=== PATIENT | female | born 1995 ===

== ENCOUNTER 2017-03-08 11:48 | Emergency (ER) | payer MEDICAID ==
--- NOTE | 2017-03-08 12:08 | EDM.PDOC ---
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 Past medical history: As per history of present illness and as reviewed below otherwise noncontributory. Surgical history: As per history of present illness and as reviewed below otherwise noncontributory. Social history: No reported history of drug or alcohol abuse. Family history: As per history of present illness and as reviewed below otherwise noncontributory. Physical exam: Alert and oriented female she does have 2 children in with her. Answers questions appropriately. No shortness of breath noted. she is nontoxic in appearance. HEENT: Atraumatic, normocehpalic, pupils reactive, negative for conjunctival pallor or scleral icterus, mucous membranes moist, throat clear, neck supple, nontender, trachea midline. Lungs: Clear to auscultation, breath sounds equal bilaterally, chest non tender. Heart: S1S2, regular, negative for clicks, rubs, or JVD. Abdomen: Soft, nondistended, nontender. Negative for masses or hepatossplenmegaly. Negative for costovertebral tenderness. Pelvis: Stable nontender. Genitourinary: Deferred. Rectal: Deferred Extremities: Atraumatic, negative for cords or calf pain. Neurovascular unremarkable. Neuro: Awake, alert, oriented. Cranial nerves II through XII unremarkable. Cerebellum unremarkable. Motor and sensory unremarkable throughout. Exam nonfocal. Discussed with patient that the ultrasound shows no cardiac heartbeat. And unfortunately this likely means demise of her baby. She is visibly distressed. And denies that there is anyone that she is able to call at this time. No one else was aware of her . Pastoral services was offered by nursing staff and she refused. Diagnostics: [ua US] Therapeutics: [] Impression: [ demise pending AB] Plan: []Discharged to home Follow up with Radha Jaimes as discussed Definitive disposition and diagnosis as appropriate pending reevaluation and review of above. 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 ED EXAM - Physical Exam Exam: See Below (See dictation) Course - Vital Signs Last Recorded V/S: Last Vital Signs Temp 36.2 C 03/08/17 11:48 Pulse 117 H 03/08/17 11:48 Resp 18 03/08/17 11:48 BP 112/74 03/08/17 11:48 Pulse Ox 96 03/08/17 11:48 - Orders/Labs/Meds Orders: Active Orders 24 hr Category Date Time Status OB 1st Tri Sgl 1st Gest [US] Stat Exams 03/08/17 12:08 Taken CULTURE URINE [RM] Stat Lab 03/08/17 13:06 Received UA W/MICROSCOPIC [URIN] Stat Lab 03/08/17 13:06 Received Departure - Departure Time of Disposition: 13:17 Disposition: Home, Self-Care 01 Condition: Good Clinical Impression: Incomplete - Discharge Information Referrals: PCP,None [Primary Care Provider] - Forms: ED Department Discharge Additional Instructions: The following information is given to patients seen in the emergency department who are being discharged to home. This information is to outline your options for follow-up care. We provide all patients seen in our emergency department with a follow-up referral. The need for follow-up, as well as the timing and circumstances, are variable depending upon the specifics of your emergency department visit. If you don't have a primary care physician on staff, we will provide you with a referral. We always advise you to contact your personal physician following an emergency department visit to inform them of the circumstance of the visit and for follow-up with them and/or the need for any referrals to a consulting specialist. The emergency department will also refer you to a specialist when appropriate. This referral assures that you have the opportunity for followup care with a specialist. All of these measure are taken in an effort to provide you with optimal care, which includes your followup. Under all circumstances we always encourage you to contact your private physician who remains a resource for coordinating your care. When calling for followup care, please make the office aware that this follow-up is from your recent emergency room visit. If for any reason you are refused follow-up, please contact the [facility] emergency department at and asked to speak to the emergency department charge nurse. Follow-up with Dr. Radha Jaimes as discussed. Call her for an appointment tomorrow. - My Orders Last 24 Hours: My Active Orders 03/08/17 12:08 OB 1st Tri Sgl 1st Gest [US] Stat 03/08/17 13:06 CULTURE URINE [RM] Stat UA W/MICROSCOPIC [URIN] Stat - Assessment/Plan Last 24 Hours: My Active Orders 03/08/17 12:08 OB 1st Tri Sgl 1st Gest [US] Stat 03/08/17 13:06 CULTURE URINE [RM] Stat UA W/MICROSCOPIC [URIN] Stat
[2017-03-08 14:08] VITALS: BP 119/55
--- NOTE | 2017-03-09 14:38 | US ---
EXAM DATE: 03/08/17 PATIENT'S AGE: 21 Patient: MT FLOYD Facility: [place], [place] Site . Site : 1995 Study: US OB Pelvis [id number] 12:41:50 PM Ordering Physician: Doctor Christiansen Final Report: INDICATION: Pelvic pain and bleeding. TECHNIQUE: Transvaginal scanning was performed to optimally evaluate the IUP and adnexa. Ovarian blood flow was evaluated with color-flow and pulsed Doppler. COMPARISON: None. FINDINGS: An intrauterine is demonstrated with a pole but no appreciable cardiac activity. Gestational age is estimated at 7 weeks by LMP of 6 weeks 1 day by today`s crown-rump length. The placenta is not yet formed. No subchorionic hemorrhage is evident. The ovaries are normal is size and shape. The right ovary measures 1.6 x 1.3 x 1.2 cm and the left 2.4 x 1.9 x 1.8 cm. Ovarian blood flow is demonstrated with color-flow and pulsed Doppler. No adnexal mass or free fluid is apparent. IMPRESSION: : Intrauterine gestational sac with pole but no appreciable cardiac activity. Embryonic demise suspected. Correlate with serial serum HCG levels. Dictated by El Walton MD @ Mar 08 2017 12:46PM (Electronic Signature) Report Signed by Proxy. RICARDO
== END 2017-03-08 14:15 | disposition home or self-care (01) ==
LOC: MW.ED 11:48
DX: O03.4 Incomplete spontaneous abortion without complication (principal)
CPT/HCPCS: 36415; 76801; 76801-26; 81001; 84702; 87086; 99282; 99284-25

== ENCOUNTER 2019-12-13 15:21 | Observation (INO) | payer MEDICAID, OTHER ==
[2019-12-13] MEDS ORDERED: Lidocaine 1% 50 ML MDV INJECT PRN (16:44)
[2019-12-13] MEDS ORDERED: Sodium Chloride 0.9% 10 ML SDV IV PRN (16:44)
[2019-12-13] MEDS ORDERED: Tranexamic Acid 1,000 MG in Sodium Chloride 0.9% 100 ML IV PRN (16:44)
[2019-12-13] MEDS ORDERED: Carboprost Tromethamine 250 MCG/1 ML Amp IM PRN (16:44)
[2019-12-13] MEDS ORDERED: Ondansetron 4 MG/2 ML SDV IVPUSH PRN (16:44)
[2019-12-13] MEDS ORDERED: Sodium Chloride 0.9% 2.5 ML Syringe FLUSH PRN (16:44)
[2019-12-13] MEDS ORDERED: Misoprostol 200 MCG Tab PO PRN (16:44)
[2019-12-13] MEDS ORDERED: Water For Irrigation,Sterile 1,000 ML Container IRR PRN (16:44)
[2019-12-13] MEDS ORDERED: Methylergonovine 0.2 MG/1 ML Amp IM PRN (16:44)
[2019-12-13] MEDS ORDERED: Sodium Chloride 0.9% 10 ML Syringe FLUSH PRN (16:44)
[2019-12-13] MEDS ORDERED: Oxytocin/0.9 % Sodium Chloride 30 UNIT/500 ML BAG IV SCH (16:45)
[2019-12-13] MEDS: Sodium Chloride 0.9% 1,000 ML IV SCH ×3 (17:37→23:18)
[2019-12-13] MEDS ORDERED: Betamethasone Acetate/Betamethasone Sod Phosphate 30 MG/5 ML MDV IM SCH (18:00)
[2019-12-13 18:04] LABS: BLOOD UREA NITROGEN,BUN 12 mg/dL (7.0-18.0); CARBON DIOXIDE,CO2 20.9 mmol/L (21.0-32.0); CHLORIDE,CL 104 mmol/L (98-107); GLUCOSE RANDOM 134 mg/dL (74-106); POTASSIUM,K 3.4 mmol/L (3.5-5.1); SODIUM,NA 138 mmol/L (136-145)
[2019-12-13] MEDS ORDERED: Insulin Glargine,Human Rec. Analog 100 Units/ML 3 ML Pen ONE (19:34)
[2019-12-13] MEDS ORDERED: Insulin Aspart 100 Units/ML 3 ML Pen ONE (19:34)
[2019-12-13] MEDS ORDERED: hydrOXYzine HCl 25 MG Tab PO PRN (19:35)
[2019-12-13] MEDS: Insulin Aspart 100 Units/ML 3 ML Pen SUBCUT SCH (19:49)
[2019-12-13] MEDS ORDERED: Insulin Aspart 100 Units/ML 3 ML Pen SUBCUT SCH (22:00)
[2019-12-13] MEDS ORDERED: Insulin Glargine,Human Rec. Analog 100 Units/ML 3 ML Pen SUBCUT SCH (22:00)
[2019-12-13] MEDS: Ursodiol 300 MG Cap PO SCH (23:16)
[2019-12-13 23:24] VITALS: BP 101/50; PULSE 89
[2019-12-14] MEDS: Ursodiol 300 MG Cap PO SCH ×2 (07:46→15:40)
[2019-12-14] MEDS: Sodium Chloride 0.9% 1,000 ML IV SCH ×2 (07:55→15:38)
[2019-12-14] MEDS: Insulin Aspart 100 Units/ML 3 ML Pen SUBCUT SCH (09:17)
[2019-12-14] MEDS ORDERED: Insulin Glargine,Human Rec. Analog 100 Units/ML 3 ML Pen SUBCUT SCH (10:00)
[2019-12-14] MEDS ORDERED: Ursodiol 300 MG Cap PO SCH (10:30)
[2019-12-14] MEDS ORDERED: Prenatal Multivitamin and Multimineral with Iron Tab PO SCH (10:30)
[2019-12-14] MEDS ORDERED: Betamethasone Acetate/Betamethasone Sod Phosphate 30 MG/5 ML MDV IM SCH (18:00)
--- NOTE | 2019-12-14 18:01 | US ---
Biophysical profile: Multiple real-time images were obtained transabdominally. presentation: Cephalic Placenta: Anterior with no findings of placenta previa Amniotic fluid: TREVA 7.3 cm Heart rate: 136 BPM Biophysical profile: breathing 2, movement 2, tone 2, amniotic fluid volume 2 Impression: 1. Single intrauterine fetus currently cephalic in presentation. 2. 8 out of 8 on biophysical profile. Diagnostic code #1 This report was dictated in MDT
== END 2019-12-14 18:39 | disposition home or self-care (01) ==
LOC: MW.OB 15:21
PROVIDERS: ADMIT Obstetrics & Gynecology; ATTEND Obstetrics & Gynecology
DX: O41.03X0 Oligohydramnios, third trimester, not applicable or unspecified (principal); O24.419 Gestational diabetes mellitus in pregnancy, unspecified control; O26.613 Liver and biliary tract disorders in pregnancy, third trimester; K83.1 Obstruction of bile duct; Z20.828 Contact with and (suspected) exposure to other viral communicable diseases; Z3A.36 36 weeks gestation of pregnancy
CPT/HCPCS: 36415; 59025; 76819; 80053; 82239; 82962; 85027; 86592; 86593; 87635; 96360; 96361; 96372; A9270; G0378; J0702; J1815; J7030; U0002

== ENCOUNTER 2019-12-16 17:59 | Inpatient (IN) | payer MEDICAID ==
[2019-12-16] MEDS ORDERED: Nalbuphine 10 MG/1 ML Vial IVPUSH PRN (18:25)
[2019-12-16] MEDS ORDERED: Carboprost Tromethamine 250 MCG/1 ML Amp IM PRN (18:25)
[2019-12-16] MEDS ORDERED: Sodium Chloride 0.9% 10 ML SDV IV PRN (18:25)
[2019-12-16] MEDS ORDERED: Water For Irrigation,Sterile 1,000 ML Container IRR PRN (18:25)
[2019-12-16] MEDS ORDERED: Sodium Chloride 0.9% 2.5 ML Syringe FLUSH PRN (18:25)
[2019-12-16] MEDS ORDERED: Sodium Chloride 0.9% 10 ML Syringe FLUSH PRN (18:25)
[2019-12-16] MEDS ORDERED: Lidocaine 1% 50 ML MDV INJECT PRN (18:25)
[2019-12-16] MEDS ORDERED: Tranexamic Acid 1,000 MG in Sodium Chloride 0.9% 100 ML IV PRN (18:25)
[2019-12-16] MEDS ORDERED: Methylergonovine 0.2 MG/1 ML Amp IM PRN (18:25)
[2019-12-16] MEDS ORDERED: Misoprostol 200 MCG Tab PO PRN (18:25)
[2019-12-16] MEDS ORDERED: Terbutaline 1 MG/ML SDV SUBCUT PRN (18:25)
[2019-12-16] MEDS ORDERED: Oxytocin/0.9 % Sodium Chloride 30 UNIT/500 ML BAG IV SCH ×2 (18:30)
[2019-12-16] MEDS ORDERED: Dextrose 5%-0.9% NaCl 1,000 ML IV PRN (18:57)
[2019-12-16] MEDS: Sodium Chloride 0.9% 1,000 ML IV SCH ×2 (19:28→22:52)
[2019-12-17] MEDS: Sodium Chloride 0.9% 1,000 ML IV SCH (04:35)
[2019-12-17] MEDS ORDERED: Ondansetron 4 MG/2 ML SDV IVPUSH PRN (06:56)
[2019-12-17] MEDS: Butorphanol 1 MG/ML SDV IVPUSH PRN ×2 (07:41→08:59)
[2019-12-17] MEDS ORDERED: Bisacodyl 10 MG Supp RECTAL PRN (10:07)
[2019-12-17] MEDS ORDERED: Benzocaine/Menthol 20%-0.5% Spray 78 GM Cannister TOP PRN (10:07)
[2019-12-17] MEDS ORDERED: Witch Hazel Medicated Pads 40/Jar TOP PRN (10:07)
[2019-12-17] MEDS ORDERED: Acetaminophen 500 MG Tab PO PRN (10:07)
[2019-12-17] MEDS ORDERED: Lanolin 100% Cream 7 GM Tube TOP PRN (10:07)
[2019-12-17] MEDS ORDERED: Docusate Sodium 100 MG Cap PO PRN (10:07)
[2019-12-17] MEDS ORDERED: Ibuprofen 400 MG Tab PO PRN (10:07)
[2019-12-17] MEDS ORDERED: Methylergonovine 0.2 MG/1 ML Amp IM PRN (10:07)
[2019-12-17] MEDS ORDERED: Ibuprofen 800 MG Tab PO PRN (10:07)
--- NOTE | 2019-12-17 10:09 | PCM.DEL ---
<Melania Reilly - Last Filed: 12/18/19 07:13> L & D Note - General Info Date of Service: 12/17/19 - Delivery Note Labor: Spontaneous, Augmented by Oxytocin, Induced by ARM Delivery Outcome: Livebirth Infant Delivery Method: Spontaneous Vaginal Delivery-Single Anesthesia Type: None Episiotomy Type: None Laceration: None Placenta: Intact, Spontaneous - Patient Data Vitals - Most Recent: Last Vital Signs Temp 36.9 C 12/18/19 04:50 Pulse 95 12/18/19 04:50 Resp 16 12/18/19 04:50 BP 126/71 12/17/19 20:00 Pulse Ox 95 12/18/19 04:50 Lab Results Last 24 Hours: Laboratory Results - last 24 hr 12/17/19 12/17/19 12/18/19 Range/Units 07:30 09:46 06:10 Hgb 11.0 L (12.0-16.0) g/dL Hct 33.9 L (36.0-46.0) % Cord ABG pH 7.277 (7.18-7.38) Cord ABG Base Excess -5 (-10--2) Cord VBG pH 7.358 (7.25-7.45) Cord VBG Base Excess -5 (-10--2) Sodium (136-145) mmol/L Potassium (3.5-5.1) mmol/L Chloride (98-107) mmol/L Carbon Dioxide (21.0-32.0) mmol/L BUN (7.0-18.0) mg/dL Creatinine (0.6-1.0) mg/dL Est Cr Clr Drug Dosing mL/min Estimated GFR (MDRD) ml/min Glucose (74-106) mg/dL POC Glucose 71 (60-110) mg/dL Calcium (8.5-10.1) mg/dL 12/18/19 Range/Units 06:10 Hgb (12.0-16.0) g/dL Hct (36.0-46.0) % Cord ABG pH (7.18-7.38) Cord ABG Base Excess (-10--2) Cord VBG pH (7.25-7.45) Cord VBG Base Excess (-10--2) Sodium 139 (136-145) mmol/L Potassium 3.8 (3.5-5.1) mmol/L Chloride 106 (98-107) mmol/L Carbon Dioxide 25.3 (21.0-32.0) mmol/L BUN 9 (7.0-18.0) mg/dL Creatinine 0.6 (0.6-1.0) mg/dL Est Cr Clr Drug Dosing 131.22 mL/min Estimated GFR (MDRD) > 60.0 ml/min Glucose 110 H (74-106) mg/dL POC Glucose (60-110) mg/dL Calcium 8.3 L (8.5-10.1) mg/dL Med Orders - Current: Current Medications Acetaminophen (Tylenol Extra Strength) 500 mg PO Q4H PRN PRN Reason: Pain Acetaminophen (Tylenol Extra Strength) 1,000 mg PO Q4H PRN PRN Reason: Pain Last Admin: 12/18/19 01:13 Dose: 1,000 mg Documented by: Benzocaine/Menthol (Dermoplast Pain Relief 20%-0.5% Warren) 78 gm TOP ASDIRECTED PRN PRN Reason: Perineal Comfort Measure Bisacodyl (Dulcolax) 10 mg RECTAL ONETIME PRN PRN Reason: Constipation Docusate Sodium (Colace) 100 mg PO BID PRN PRN Reason: Constipation Emollient Ointment (Lansinoh Hpa) 0 gm TOP ASDIRECTED PRN PRN Reason: Sore Nipples Ibuprofen (Motrin) 400 mg PO Q4H PRN PRN Reason: Pain Ibuprofen (Motrin) 800 mg PO Q6H PRN PRN Reason: Pain Methylergonovine Maleate (Methergine) 0.2 mg IM ONETIME PRN PRN Reason: Excessive Vaginal Bleeding Nadolol [Corgard] 20 (Mg)) 1 each PO DAILY [facility] Last Admin: 12/17/19 16:02 Dose: Not Given Documented by: #103/Iron Fumarate/Fa [ ] 1 each PO DAILY [facility] Meeta Deutsch (Rory) 1 pad TOP ASDIRECTED PRN PRN Reason: comfort care Discontinued Medications Butorphanol Tartrate (Stadol) 1 mg IVPUSH Q1H PRN PRN Reason: Pain Last Admin: 12/17/19 08:59 Dose: 1 mg Documented by: Carboprost Tromethamine (Hemabate Ds) 250 mcg IM ASDIRECTED PRN PRN Reason: Post Hemorrhage Oxytocin/Sodium Chloride (Oxytocin 30 Unit/500 Ml-Ns) 30 unit in 500 mls @ 500 mls/hr IV TITRATE EDIE Tranexamic Acid 1,000 mg/ (Sodium Chloride) 110 mls @ 660 mls/hr IV ONETIME PRN PRN Reason: Bleeding Oxytocin/Sodium Chloride (Oxytocin 30 Unit/500 Ml-Ns) 30 unit in 500 mls @ 2 mls/hr IV TITRATE EDIE; Protocol Last Titration: 12/17/19 05:31 Dose: 10 munits/min, 10 mls/hr Documented by: Sodium Chloride (Normal Saline) 1,000 mls @ 150 mls/hr IV ASDIRECTED EDIE Last Infusion: 12/17/19 09:18 Dose: 999 mls/hr Documented by: Insulin Human Regular 100 unit (/ Sodium Chloride) 100 mls @ 1 mls/hr IV TITRATE EDIE; Protocol Dextrose/Sodium Chloride (Dextrose 5%-Normal Saline) 1,000 mls @ 100 mls/hr IV ASDIRECTED PRN PRN Reason: Blood Glucose Lidocaine HCl (Xylocaine 1%) 50 ml INJECT ONETIME PRN PRN Reason: Laceration repair Methylergonovine Maleate (Methergine) 0.2 mg IM ASDIRECTED PRN PRN Reason: Post Hemorrhage Misoprostol (Cytotec) 200 mcg PO ONETIME PRN PRN Reason: Post Hemorrhage Nalbuphine HCl (Nubain) 10 mg IVPUSH Q1H PRN PRN Reason: Pain (severe 7-10) Ondansetron HCl (Zofran) 4 mg IVPUSH Q6H PRN PRN Reason: Nausea/Vomiting Last Admin: 12/17/19 07:46 Dose: 4 mg Documented by: Sodium Chloride (Saline Flush) 10 ml FLUSH ASDIRECTED PRN PRN Reason: Keep Vein Open Sodium Chloride (Saline Flush) 2.5 ml FLUSH ASDIRECTED PRN PRN Reason: Keep Vein Open Sodium Chloride (Normal Saline) 10 ml IV ASDIRECTED PRN PRN Reason: IV Use Sterile Water (Sterile Water For Irrigation) 1,000 ml IRR ASDIRECTED PRN PRN Reason: delivery Terbutaline Sulfate (Brethine) 0.25 mg SUBCUT ASDIRECTED PRN PRN Reason: Tacysystole - Problem List & Annotations (1) Vaginal delivery SNOMED Code(s): 825458023 Code(s): O80 - ENCOUNTER FOR FULL-TERM UNCOMPLICATED DELIVERY Status: Acute - Problem List Review Problem List Initiated/Reviewed/Updated: Yes - My Orders Last 24 Hours: My Active Orders 12/17/19 10:07 Patient Status [ADT] Routine May Shower [RC] ASDIRECTED Up ad Rose Marie [RC] ASDIRECTED Vital Signs [RC] PER UNIT ROUTINE Acetaminophen [Tylenol Extra Strength] 1,000 mg PO Q4H PRN Acetaminophen [Tylenol Extra Strength] 500 mg PO Q4H PRN Benzocaine/Menthol [Dermoplast Pain Relief 20%-0.5% Warren] 78 gm TOP ASDIRECTED PRN Docusate Sodium [Colace] 100 mg PO BID PRN Ibuprofen [Motrin] 400 mg PO Q4H PRN Ibuprofen [Motrin] 800 mg PO Q6H PRN Lanolin [Lansinoh HPA] See Dose Instructions TOP ASDIRECTED PRN Methylergonovine [Methergine] 0.2 mg IM ONETIME PRN bisacodyL [Dulcolax] 10 mg RECTAL ONETIME PRN witch Arely [Tucks] 1 pad TOP ASDIRECTED PRN Assess Lochia [WOMSER] Per Unit Routine Assess Uterine Involution [WOMSER] Per Unit Routine Peripheral IV Discontinue [OM.PC] Routine Resuscitation Status Routine 12/17/19 10:08 Perineal Care [OM.PC] Per Unit Routine 12/17/19 10:15 Patient's Own Medication [Ptom] 1 each PO DAILY 12/17/19 Lunch Regular Diet [DIET] 12/18/19 09:00 Patient's Own Medication [Ptom] 1 each PO DAILY <Toribio Diaz - Last Filed: 12/20/19 14:54> L & D Note - General Info Date of Service: 12/17/19 - Delivery Note Labor: Spontaneous, Augmented by Oxytocin, Induced by ARM Delivery Outcome: Livebirth Delivery Method: Spontaneous Vaginal Delivery-Single Infant Delivery Mode: Spontaneous Presentation: Left Occiput Anterior (DEEDEE) Nuchal Cord: None Anesthesia Type: None Amniotic Fluid Description: Meconium Stained Laceration: None Placenta: Intact, Spontaneous Cord: 3 Vessels Estimated Blood Loss: 100 Resuscitation Needed: No : Suctioned, Bulb Syringe, Stimulated, Warmed Score 1 min: 7 Score 5 min: 9 Delivery Comments (Free Text/Narrative):: Liveborn female weight ####g, apgars 7 and 9 - General Info Date of Service: 12/17/19 - Patient Data Weight - Most Recent: 188 lb I&O - Last 24 Hours: Intake & Output 12/16/19 12/17/19 12/17/19 22:59 06:59 14:59 Intake Total 1000 1000 Balance 1000 1000 Lab Results Last 24 Hours: Laboratory Results - last 24 hr 12/16/19 12/16/19 12/16/19 Range/Units 18:15 18:36 18:36 WBC 13.56 H (4.0-11.0) K/uL RBC 3.89 L (4.30-5.90) M/uL Hgb 11.2 L (12.0-16.0) g/dL Hct 34.9 L (36.0-46.0) % MCV 89.7 (80.0-98.0) fL MCH 28.8 (27.0-32.0) pg MCHC 32.1 (31.0-37.0) g/dL RDW Std Deviation 45.7 (28.0-62.0) fl RDW Coeff of Popeye 14 (11.0-15.0) % Plt Count 200 (150-400) K/uL MPV 11.40 (7.40-12.00) fL Nucleated RBC % 0.0 /100WBC Nucleated RBCs # 0 K/uL POC Glucose (60-110) mg/dL COVID-19 (SHRUTHI) NEGATIVE (NEGATIVE) Blood Type A POSITIVE Antibody Screen NEGATIVE 12/16/19 12/16/19 12/17/19 Range/Units 19:44 21:51 00:26 WBC (4.0-11.0) K/uL RBC (4.30-5.90) M/uL Hgb (12.0-16.0) g/dL Hct (36.0-46.0) % MCV (80.0-98.0) fL MCH (27.0-32.0) pg MCHC (31.0-37.0) g/dL RDW Std Deviation (28.0-62.0) fl RDW Coeff of Popeye (11.0-15.0) % Plt Count (150-400) K/uL MPV (7.40-12.00) fL Nucleated RBC % /100WBC Nucleated RBCs # K/uL POC Glucose 81 101 72 (60-110) mg/dL COVID-19 (SHRUTHI) (NEGATIVE) Blood Type Antibody Screen 12/17/19 12/17/19 12/17/19 Range/Units 01:02 03:01 05:05 WBC (4.0-11.0) K/uL RBC (4.30-5.90) M/uL Hgb (12.0-16.0) g/dL Hct (36.0-46.0) % MCV (80.0-98.0) fL MCH (27.0-32.0) pg MCHC (31.0-37.0) g/dL RDW Std Deviation (28.0-62.0) fl RDW Coeff of Popeye (11.0-15.0) % Plt Count (150-400) K/uL MPV (7.40-12.00) fL Nucleated RBC % /100WBC Nucleated RBCs # K/uL POC Glucose 113 H 82 63 (60-110) mg/dL COVID-19 (SHRUTHI) (NEGATIVE) Blood Type Antibody Screen 12/17/19 12/17/19 Range/Units 05:32 07:30 WBC (4.0-11.0) K/uL RBC (4.30-5.90) M/uL Hgb (12.0-16.0) g/dL Hct (36.0-46.0) % MCV (80.0-98.0) fL MCH (27.0-32.0) pg MCHC (31.0-37.0) g/dL RDW Std Deviation (28.0-62.0) fl RDW Coeff of Popeye (11.0-15.0) % Plt Count (150-400) K/uL MPV (7.40-12.00) fL Nucleated RBC % /100WBC Nucleated RBCs # K/uL POC Glucose 101 71 (60-110) mg/dL COVID-19 (SHRUTHI) (NEGATIVE) Blood Type Antibody Screen Med Orders - Current: Current Medications Butorphanol Tartrate (Stadol) 1 mg IVPUSH Q1H PRN PRN Reason: Pain Last Admin: 12/17/19 08:59 Dose: 1 mg Documented by: Carboprost Tromethamine (Hemabate Ds) 250 mcg IM ASDIRECTED PRN PRN Reason: Post Hemorrhage Oxytocin/Sodium Chloride (Oxytocin 30 Unit/500 Ml-Ns) 30 unit in 500 mls @ 500 mls/hr IV TITRATE EDIE Tranexamic Acid 1,000 mg/ (Sodium Chloride) 110 mls @ 660 mls/hr IV ONETIME PRN PRN Reason: Bleeding Oxytocin/Sodium Chloride (Oxytocin 30 Unit/500 Ml-Ns) 30 unit in 500 mls @ 2 mls/hr IV TITRATE EDIE; Protocol Last Titration: 12/17/19 05:31 Dose: 10 munits/min, 10 mls/hr Documented by: Sodium Chloride (Normal Saline) 1,000 mls @ 150 mls/hr IV ASDIRECTED EDIE Last Infusion: 12/17/19 09:18 Dose: 999 mls/hr Documented by: Insulin Human Regular 100 unit (/ Sodium Chloride) 100 mls @ 1 mls/hr IV TITRATE EDIE; Protocol Dextrose/Sodium Chloride (Dextrose 5%-Normal Saline) 1,000 mls @ 100 mls/hr IV ASDIRECTED PRN PRN Reason: Blood Glucose Lidocaine HCl (Xylocaine 1%) 50 ml INJECT ONETIME PRN PRN Reason: Laceration repair Methylergonovine Maleate (Methergine) 0.2 mg IM ASDIRECTED PRN PRN Reason: Post Hemorrhage Misoprostol (Cytotec) 200 mcg PO ONETIME PRN PRN Reason: Post Hemorrhage Nalbuphine HCl (Nubain) 10 mg IVPUSH Q1H PRN PRN Reason: Pain (severe 7-10) Ondansetron HCl (Zofran) 4 mg IVPUSH Q6H PRN PRN Reason: Nausea/Vomiting Last Admin: 12/17/19 07:46 Dose: 4 mg Documented by: Sodium Chloride (Saline Flush) 10 ml FLUSH ASDIRECTED PRN PRN Reason: Keep Vein Open Sodium Chloride (Saline Flush) 2.5 ml FLUSH ASDIRECTED PRN PRN Reason: Keep Vein Open Sodium Chloride (Normal Saline) 10 ml IV ASDIRECTED PRN PRN Reason: IV Use Sterile Water (Sterile Water For Irrigation) 1,000 ml IRR ASDIRECTED PRN PRN Reason: delivery Terbutaline Sulfate (Brethine) 0.25 mg SUBCUT ASDIRECTED PRN PRN Reason: Tacysystole - Problem List & Annotations (1) Vaginal delivery SNOMED Code(s): 903882563 Code(s): O80 - ENCOUNTER FOR FULL-TERM UNCOMPLICATED DELIVERY Status: Acute - Problem List Review Problem List Initiated/Reviewed/Updated: Yes - Assessment Assessment:: 24yo female s/p . complicated by cholestasis, GDMA2, oligohydramnios, meconium-stained fluid. - Plan Plan:: Admit to for routine care Encourage Monitor lochia Monitor blood glucose
[2019-12-17] MEDS: NADOLOL 20 MG PO SCH (16:02)
[2019-12-18] MEDS: Acetaminophen 500 MG Tab PO PRN ×3 (01:13→22:57)
[2019-12-18 06:33] LABS: BLOOD UREA NITROGEN,BUN 9 mg/dL (7.0-18.0); CARBON DIOXIDE,CO2 25.3 mmol/L (21.0-32.0); CHLORIDE,CL 106 mmol/L (98-107); GLUCOSE RANDOM 110 mg/dL (74-106); POTASSIUM,K 3.8 mmol/L (3.5-5.1); SODIUM,NA 139 mmol/L (136-145)
--- NOTE | 2019-12-18 07:02 | PCM.PNPP ---
<Toribio Diaz - Last Filed: 12/18/19 06:56> - General Info Date of Service: 12/18/19 Admission Dx/Problem (Free Text): S/p Subjective Update: Pt seen at beside this morning. She is feeling well. Pain and bleeding are mild. She has been ambulating without difficulty. She has voided urine. Tolerating oral intake without nausea or vomiting. with some success. Functional Status: Reports: Pain Controlled - Review of Systems General: Reports: No Symptoms HEENT: Reports: No Symptoms Pulmonary: Reports: No Symptoms Cardiovascular: Reports: No Symptoms Gastrointestinal: Reports: No Symptoms Genitourinary: Reports: No Symptoms Musculoskeletal: Reports: No Symptoms Skin: Reports: No Symptoms Neurological: Reports: No Symptoms Psychiatric: Reports: No Symptoms - General Info Date of Service: 12/18/19 - Patient Data Vital Signs - Most Recent: Last Vital Signs Temp 98.4 F 12/18/19 04:50 Pulse 95 12/18/19 04:50 Resp 16 12/18/19 04:50 BP 126/71 12/17/19 20:00 Pulse Ox 95 12/18/19 04:50 Weight - Most Recent: 85.275 kg Lab Results - Last 24 Hours: Laboratory Results - last 24 hr 12/17/19 12/17/19 12/18/19 Range/Units 07:30 09:46 06:10 Hgb 11.0 L (12.0-16.0) g/dL Hct 33.9 L (36.0-46.0) % Cord ABG pH 7.277 (7.18-7.38) Cord ABG Base Excess -5 (-10--2) Cord VBG pH 7.358 (7.25-7.45) Cord VBG Base Excess -5 (-10--2) Sodium (136-145) mmol/L Potassium (3.5-5.1) mmol/L Chloride (98-107) mmol/L Carbon Dioxide (21.0-32.0) mmol/L BUN (7.0-18.0) mg/dL Creatinine (0.6-1.0) mg/dL Est Cr Clr Drug Dosing mL/min Estimated GFR (MDRD) ml/min Glucose (74-106) mg/dL POC Glucose 71 (60-110) mg/dL Calcium (8.5-10.1) mg/dL 12/18/19 Range/Units 06:10 Hgb (12.0-16.0) g/dL Hct (36.0-46.0) % Cord ABG pH (7.18-7.38) Cord ABG Base Excess (-10--2) Cord VBG pH (7.25-7.45) Cord VBG Base Excess (-10--2) Sodium 139 (136-145) mmol/L Potassium 3.8 (3.5-5.1) mmol/L Chloride 106 (98-107) mmol/L Carbon Dioxide 25.3 (21.0-32.0) mmol/L BUN 9 (7.0-18.0) mg/dL Creatinine 0.6 (0.6-1.0) mg/dL Est Cr Clr Drug Dosing 131.22 mL/min Estimated GFR (MDRD) > 60.0 ml/min Glucose 110 H (74-106) mg/dL POC Glucose (60-110) mg/dL Calcium 8.3 L (8.5-10.1) mg/dL Med Orders - Current: Current Medications Acetaminophen (Tylenol Extra Strength) 500 mg PO Q4H PRN PRN Reason: Pain Acetaminophen (Tylenol Extra Strength) 1,000 mg PO Q4H PRN PRN Reason: Pain Last Admin: 12/18/19 01:13 Dose: 1,000 mg Documented by: Benzocaine/Menthol (Dermoplast Pain Relief 20%-0.5% [place]) 78 gm TOP ASDIRECTED PRN PRN Reason: Perineal Comfort Measure Bisacodyl (Dulcolax) 10 mg RECTAL ONETIME PRN PRN Reason: Constipation Docusate Sodium (Colace) 100 mg PO BID PRN PRN Reason: Constipation Emollient Ointment (Lansinoh Hpa) 0 gm TOP ASDIRECTED PRN PRN Reason: Sore Nipples Ibuprofen (Motrin) 400 mg PO Q4H PRN PRN Reason: Pain Ibuprofen (Motrin) 800 mg PO Q6H PRN PRN Reason: Pain Methylergonovine Maleate (Methergine) 0.2 mg IM ONETIME PRN PRN Reason: Excessive Vaginal Bleeding Nadolol [Corgard] 20 (Mg)) 1 each PO DAILY [facility] Last Admin: 12/17/19 16:02 Dose: Not Given Documented by: #103/Iron Fumarate/Fa [ ] 1 each PO DAILY [facility] Meeta Deutsch (Royr) 1 pad TOP ASDIRECTED PRN PRN Reason: comfort care Discontinued Medications Butorphanol Tartrate (Stadol) 1 mg IVPUSH Q1H PRN PRN Reason: Pain Last Admin: 12/17/19 08:59 Dose: 1 mg Documented by: Carboprost Tromethamine (Hemabate Ds) 250 mcg IM ASDIRECTED PRN PRN Reason: Post Hemorrhage Oxytocin/Sodium Chloride (Oxytocin 30 Unit/500 Ml-Ns) 30 unit in 500 mls @ 500 mls/hr IV TITRATE [facility] Tranexamic Acid 1,000 mg/ (Sodium Chloride) 110 mls @ 660 mls/hr IV ONETIME PRN PRN Reason: Bleeding Oxytocin/Sodium Chloride (Oxytocin 30 Unit/500 Ml-Ns) 30 unit in 500 mls @ 2 mls/hr IV TITRATE EDIE; Protocol Last Titration: 12/17/19 05:31 Dose: 10 munits/min, 10 mls/hr Documented by: Sodium Chloride (Normal Saline) 1,000 mls @ 150 mls/hr IV ASDIRECTED EDIE Last Infusion: 12/17/19 09:18 Dose: 999 mls/hr Documented by: Insulin Human Regular 100 unit (/ Sodium Chloride) 100 mls @ 1 mls/hr IV TITRATE EDIE; Protocol Dextrose/Sodium Chloride (Dextrose 5%-Normal Saline) 1,000 mls @ 100 mls/hr IV ASDIRECTED PRN PRN Reason: Blood Glucose Lidocaine HCl (Xylocaine 1%) 50 ml INJECT ONETIME PRN PRN Reason: Laceration repair Methylergonovine Maleate (Methergine) 0.2 mg IM ASDIRECTED PRN PRN Reason: Post Hemorrhage Misoprostol (Cytotec) 200 mcg PO ONETIME PRN PRN Reason: Post Hemorrhage Nalbuphine HCl (Nubain) 10 mg IVPUSH Q1H PRN PRN Reason: Pain (severe 7-10) Ondansetron HCl (Zofran) 4 mg IVPUSH Q6H PRN PRN Reason: Nausea/Vomiting Last Admin: 12/17/19 07:46 Dose: 4 mg Documented by: Sodium Chloride (Saline Flush) 10 ml FLUSH ASDIRECTED PRN PRN Reason: Keep Vein Open Sodium Chloride (Saline Flush) 2.5 ml FLUSH ASDIRECTED PRN PRN Reason: Keep Vein Open Sodium Chloride (Normal Saline) 10 ml IV ASDIRECTED PRN PRN Reason: IV Use Sterile Water (Sterile Water For Irrigation) 1,000 ml IRR ASDIRECTED PRN PRN Reason: delivery Terbutaline Sulfate (Brethine) 0.25 mg SUBCUT ASDIRECTED PRN PRN Reason: Tacysystole - Infant Interaction Infant Disposition, : Huntly in Room with Family Infant Interaction: Holding Infant Feeding: Attempted ; Nursed Fair/Poor Support Person: - Recovery Exam Fundal Tone: Firm Fundal Level: 1 Fingerbreadths Below Umbilicus Fundal Placement: Midline Lochia Amount: Scant Lochia Color: Rubra/Red Perineum Description: Intact, Minimal Bruising/Swelling Episiotomy/Laceration: None Bladder Status: Voiding Urinary Elimination: Voided - Exam General: Alert, Oriented, No Acute Distress HEENT: Pupils Equal, EOMI Neck: Supple, No JVD Lungs: Clear to Auscultation, Normal Respiratory Effort. No: Crackles, Rales, Rhonchi, Rub, Wheezing Cardiovascular: Regular Rate, Regular Rhythm, No Murmurs GI/Abdominal Exam: Soft, Non-Tender Extremities: Normal Inspection, Non-Tender, Pedal Edema Skin: Warm, Dry, Intact Neurological: No New Focal Deficit, Normal Speech, Normal Tone Psy/Mental Status: Alert, Normal Affect, Normal Mood - Problem List & Annotations (1) Vaginal delivery SNOMED Code(s): 244663437 Code(s): O80 - ENCOUNTER FOR FULL-TERM UNCOMPLICATED DELIVERY Status: Acute Current Visit: Yes - Assessment Assessment:: 24yo female s/p . complicated by cholestasis, GDMA2, oligohydramnios, meconium-stained fluid. - Plan Plan:: Routine care Encourage Monitor lochia Monitor blood glucose D/C tomorrow <Melaina Reilly - Last Filed: 12/18/19 07:09> - Patient Data Vital Signs - Most Recent: Last Vital Signs Temp 36.9 C 12/18/19 04:50 Pulse 95 12/18/19 04:50 Resp 16 12/18/19 04:50 BP 126/71 12/17/19 20:00 Pulse Ox 95 12/18/19 04:50 Lab Results - Last 24 Hours: Laboratory Results - last 24 hr 12/17/19 12/17/19 12/18/19 Range/Units 07:30 09:46 06:10 Hgb 11.0 L (12.0-16.0) g/dL Hct 33.9 L (36.0-46.0) % Cord ABG pH 7.277 (7.18-7.38) Cord ABG Base Excess -5 (-10--2) Cord VBG pH 7.358 (7.25-7.45) Cord VBG Base Excess -5 (-10--2) Sodium (136-145) mmol/L Potassium (3.5-5.1) mmol/L Chloride (98-107) mmol/L Carbon Dioxide (21.0-32.0) mmol/L BUN (7.0-18.0) mg/dL Creatinine (0.6-1.0) mg/dL Est Cr Clr Drug Dosing mL/min Estimated GFR (MDRD) ml/min Glucose (74-106) mg/dL POC Glucose 71 (60-110) mg/dL Calcium (8.5-10.1) mg/dL 12/18/19 Range/Units 06:10 Hgb (12.0-16.0) g/dL Hct (36.0-46.0) % Cord ABG pH (7.18-7.38) Cord ABG Base Excess (-10--2) Cord VBG pH (7.25-7.45) Cord VBG Base Excess (-10--2) Sodium 139 (136-145) mmol/L Potassium 3.8 (3.5-5.1) mmol/L Chloride 106 (98-107) mmol/L Carbon Dioxide 25.3 (21.0-32.0) mmol/L BUN 9 (7.0-18.0) mg/dL Creatinine 0.6 (0.6-1.0) mg/dL Est Cr Clr Drug Dosing 131.22 mL/min Estimated GFR (MDRD) > 60.0 ml/min Glucose 110 H (74-106) mg/dL POC Glucose (60-110) mg/dL Calcium 8.3 L (8.5-10.1) mg/dL Med Orders - Current: Current Medications Acetaminophen (Tylenol Extra Strength) 500 mg PO Q4H PRN PRN Reason: Pain Acetaminophen (Tylenol Extra Strength) 1,000 mg PO Q4H PRN PRN Reason: Pain Last Admin: 12/18/19 01:13 Dose: 1,000 mg Documented by: Benzocaine/Menthol (Dermoplast Pain Relief 20%-0.5% [place]) 78 gm TOP ASDIRECTED PRN PRN Reason: Perineal Comfort Measure Bisacodyl (Dulcolax) 10 mg RECTAL ONETIME PRN PRN Reason: Constipation Docusate Sodium (Colace) 100 mg PO BID PRN PRN Reason: Constipation Emollient Ointment (Lansinoh Hpa) 0 gm TOP ASDIRECTED PRN PRN Reason: Sore Nipples Ibuprofen (Motrin) 400 mg PO Q4H PRN PRN Reason: Pain Ibuprofen (Motrin) 800 mg PO Q6H PRN PRN Reason: Pain Methylergonovine Maleate (Methergine) 0.2 mg IM ONETIME PRN PRN Reason: Excessive Vaginal Bleeding Nadolol [Corgard] 20 (Mg)) 1 each PO DAILY [facility] Last Admin: 12/17/19 16:02 Dose: Not Given Documented by: #103/Iron Fumarate/Fa [ ] 1 each PO DAILY [facility] Meeta Deutsch (Tucks) 1 pad TOP ASDIRECTED PRN PRN Reason: comfort care Discontinued Medications Butorphanol Tartrate (Stadol) 1 mg IVPUSH Q1H PRN PRN Reason: Pain Last Admin: 12/17/19 08:59 Dose: 1 mg Documented by: Carboprost Tromethamine (Hemabate Ds) 250 mcg IM ASDIRECTED PRN PRN Reason: Post Hemorrhage Oxytocin/Sodium Chloride (Oxytocin 30 Unit/500 Ml-Ns) 30 unit in 500 mls @ 500 mls/hr IV TITRATE EDIE Tranexamic Acid 1,000 mg/ (Sodium Chloride) 110 mls @ 660 mls/hr IV ONETIME PRN PRN Reason: Bleeding Oxytocin/Sodium Chloride (Oxytocin 30 Unit/500 Ml-Ns) 30 unit in 500 mls @ 2 mls/hr IV TITRATE [facility]; Protocol Last Titration: 12/17/19 05:31 Dose: 10 munits/min, 10 mls/hr Documented by: Sodium Chloride (Normal Saline) 1,000 mls @ 150 mls/hr IV ASDIRECTED EDIE Last Infusion: 12/17/19 09:18 Dose: 999 mls/hr Documented by: Insulin Human Regular 100 unit (/ Sodium Chloride) 100 mls @ 1 mls/hr IV TITRATE EDIE; Protocol Dextrose/Sodium Chloride (Dextrose 5%-Normal Saline) 1,000 mls @ 100 mls/hr IV ASDIRECTED PRN PRN Reason: Blood Glucose Lidocaine HCl (Xylocaine 1%) 50 ml INJECT ONETIME PRN PRN Reason: Laceration repair Methylergonovine Maleate (Methergine) 0.2 mg IM ASDIRECTED PRN PRN Reason: Post Hemorrhage Misoprostol (Cytotec) 200 mcg PO ONETIME PRN PRN Reason: Post Hemorrhage Nalbuphine HCl (Nubain) 10 mg IVPUSH Q1H PRN PRN Reason: Pain (severe 7-10) Ondansetron HCl (Zofran) 4 mg IVPUSH Q6H PRN PRN Reason: Nausea/Vomiting Last Admin: 12/17/19 07:46 Dose: 4 mg Documented by: Sodium Chloride (Saline Flush) 10 ml FLUSH ASDIRECTED PRN PRN Reason: Keep Vein Open Sodium Chloride (Saline Flush) 2.5 ml FLUSH ASDIRECTED PRN PRN Reason: Keep Vein Open Sodium Chloride (Normal Saline) 10 ml IV ASDIRECTED PRN PRN Reason: IV Use Sterile Water (Sterile Water For Irrigation) 1,000 ml IRR ASDIRECTED PRN PRN Reason: delivery Terbutaline Sulfate (Brethine) 0.25 mg SUBCUT ASDIRECTED PRN PRN Reason: Tacysystole - Problem List & Annotations (1) Vaginal delivery SNOMED Code(s): 713826528 Code(s): O80 - ENCOUNTER FOR FULL-TERM UNCOMPLICATED DELIVERY Status: Acute Current Visit: Yes - Problem List Review Problem List Initiated/Reviewed/Updated: Yes - My Orders Last 24 Hours: My Active Orders 12/17/19 10:07 Patient Status [ADT] Routine May Shower [RC] ASDIRECTED Up ad Rose Marie [RC] ASDIRECTED Vital Signs [RC] PER UNIT ROUTINE Acetaminophen [Tylenol Extra Strength] 1,000 mg PO Q4H PRN Acetaminophen [Tylenol Extra Strength] 500 mg PO Q4H PRN Benzocaine/Menthol [Dermoplast Pain Relief 20%-0.5% Stewart] 78 gm TOP ASDIRECTED PRN Docusate Sodium [Colace] 100 mg PO BID PRN Ibuprofen [Motrin] 400 mg PO Q4H PRN Ibuprofen [Motrin] 800 mg PO Q6H PRN Lanolin [Lansinoh HPA] See Dose Instructions TOP ASDIRECTED PRN Methylergonovine [Methergine] 0.2 mg IM ONETIME PRN bisacodyL [Dulcolax] 10 mg RECTAL ONETIME PRN witch Arely [Tucks] 1 pad TOP ASDIRECTED PRN Assess Lochia [WOMSER] Per Unit Routine Assess Uterine Involution [WOMSER] Per Unit Routine Peripheral IV Discontinue [OM.PC] Routine Resuscitation Status Routine 12/17/19 10:08 Perineal Care [OM.PC] Per Unit Routine 12/17/19 10:15 Patient's Own Medication [Ptom] 1 each PO DAILY 12/17/19 Lunch Regular Diet [DIET] 12/18/19 09:00 Patient's Own Medication [Ptom] 1 each PO DAILY - Assessment Assessment:: Patient was seen and examined by me, baby on IV antibiotics so patient will stay until tomorrow.
[2019-12-18] MEDS ORDERED: [UNRECOGNIZED DRUG - OTHER] PO SCH (09:00)
[2019-12-18] MEDS: NADOLOL 20 MG PO SCH (12:21)
[2019-12-19] MEDS: Acetaminophen 500 MG Tab PO PRN (04:27)
[2019-12-19 04:34] VITALS: BP 115/56; PULSE 74
--- NOTE | 2019-12-19 07:26 | PCM.PNPP ---
<Toribio Diaz - Last Filed: 12/19/19 07:21> - General Info Date of Service: 12/19/19 Admission Dx/Problem (Free Text): S/P Subjective Update: Pt feeling well today. Denies questions or concerns. No complaints of pain. Minimal bleeding. Has resumed normal bowel function. Functional Status: Reports: Pain Controlled - Review of Systems General: Reports: No Symptoms HEENT: Reports: No Symptoms Pulmonary: Reports: No Symptoms Cardiovascular: Reports: No Symptoms Gastrointestinal: Reports: No Symptoms Genitourinary: Reports: No Symptoms Musculoskeletal: Reports: No Symptoms Skin: Reports: No Symptoms Neurological: Reports: No Symptoms Psychiatric: Reports: No Symptoms - Patient Data Vital Signs - Most Recent: Last Vital Signs Temp 98 F 12/19/19 04:33 Pulse 74 12/19/19 04:33 Resp 14 12/19/19 04:33 BP 115/56 L 12/19/19 04:33 Pulse Ox 96 12/19/19 04:33 Weight - Most Recent: 188 lb Med Orders - Current: Current Medications Acetaminophen (Tylenol Extra Strength) 500 mg PO Q4H PRN PRN Reason: Pain Acetaminophen (Tylenol Extra Strength) 1,000 mg PO Q4H PRN PRN Reason: Pain Last Admin: 12/19/19 04:27 Dose: 1,000 mg Documented by: Benzocaine/Menthol (Dermoplast Pain Relief 20%-0.5% [place]) 78 gm TOP ASDIRECTED PRN PRN Reason: Perineal Comfort Measure Bisacodyl (Dulcolax) 10 mg RECTAL ONETIME PRN PRN Reason: Constipation Docusate Sodium (Colace) 100 mg PO BID PRN PRN Reason: Constipation Emollient Ointment (Lansinoh Hpa) 0 gm TOP ASDIRECTED PRN PRN Reason: Sore Nipples Ibuprofen (Motrin) 400 mg PO Q4H PRN PRN Reason: Pain Ibuprofen (Motrin) 800 mg PO Q6H PRN PRN Reason: Pain Methylergonovine Maleate (Methergine) 0.2 mg IM ONETIME PRN PRN Reason: Excessive Vaginal Bleeding Nadolol [Corgard] 20 (Mg)) 1 each PO DAILY [facility] Last Admin: 12/18/19 12:21 Dose: Not Given Documented by: #103/Iron Fumarate/Fa [ ] 1 each PO DAILY [facility] Last Admin: 12/18/19 12:21 Dose: Not Given Documented by: Meeta Deutsch ([facility]) 1 pad TOP ASDIRECTED PRN PRN Reason: comfort care Discontinued Medications Butorphanol Tartrate (Stadol) 1 mg IVPUSH Q1H PRN PRN Reason: Pain Last Admin: 12/17/19 08:59 Dose: 1 mg Documented by: Carboprost Tromethamine (Hemabate Ds) 250 mcg IM ASDIRECTED PRN PRN Reason: Post Hemorrhage Oxytocin/Sodium Chloride (Oxytocin 30 Unit/500 Ml-Ns) 30 unit in 500 mls @ 500 mls/hr IV TITRATE EDIE Tranexamic Acid 1,000 mg/ (Sodium Chloride) 110 mls @ 660 mls/hr IV ONETIME PRN PRN Reason: Bleeding Oxytocin/Sodium Chloride (Oxytocin 30 Unit/500 Ml-Ns) 30 unit in 500 mls @ 2 mls/hr IV TITRATE EDIE; Protocol Last Titration: 12/17/19 05:31 Dose: 10 munits/min, 10 mls/hr Documented by: Sodium Chloride (Normal Saline) 1,000 mls @ 150 mls/hr IV ASDIRECTED EDIE Last Infusion: 12/17/19 09:18 Dose: 999 mls/hr Documented by: Insulin Human Regular 100 unit (/ Sodium Chloride) 100 mls @ 1 mls/hr IV TITRATE EDIE; Protocol Dextrose/Sodium Chloride (Dextrose 5%-Normal Saline) 1,000 mls @ 100 mls/hr IV ASDIRECTED PRN PRN Reason: Blood Glucose Lidocaine HCl (Xylocaine 1%) 50 ml INJECT ONETIME PRN PRN Reason: Laceration repair Methylergonovine Maleate (Methergine) 0.2 mg IM ASDIRECTED PRN PRN Reason: Post Hemorrhage Misoprostol (Cytotec) 200 mcg PO ONETIME PRN PRN Reason: Post Hemorrhage Nalbuphine HCl (Nubain) 10 mg IVPUSH Q1H PRN PRN Reason: Pain (severe 7-10) Ondansetron HCl (Zofran) 4 mg IVPUSH Q6H PRN PRN Reason: Nausea/Vomiting Last Admin: 12/17/19 07:46 Dose: 4 mg Documented by: Sodium Chloride (Saline Flush) 10 ml FLUSH ASDIRECTED PRN PRN Reason: Keep Vein Open Sodium Chloride (Saline Flush) 2.5 ml FLUSH ASDIRECTED PRN PRN Reason: Keep Vein Open Sodium Chloride (Normal Saline) 10 ml IV ASDIRECTED PRN PRN Reason: IV Use Sterile Water (Sterile Water For Irrigation) 1,000 ml IRR ASDIRECTED PRN PRN Reason: delivery Terbutaline Sulfate (Brethine) 0.25 mg SUBCUT ASDIRECTED PRN PRN Reason: Tacysystole - Infant Interaction Infant Disposition, : Sarita in Room with Family Interaction: Holding Feeding: Attempted ; Nursed Fair/Poor Support Person: - Recovery Exam Fundal Tone: Firm Fundal Level: 2 Fingerbreadths Below Umbilicus Fundal Placement: Midline Lochia Amount: Scant Lochia Color: Rubra/Red Perineum Description: Intact, Minimal Bruising/Swelling Episiotomy/Laceration: None Bladder Status: Voiding Urinary Elimination: Voided - Exam General: Alert, Oriented HEENT: Pupils Equal, EOMI Neck: Supple, No JVD Lungs: Clear to Auscultation, Normal Respiratory Effort. No: Crackles, Rales, Rhonchi, Rub, Wheezing Cardiovascular: Regular Rate, Regular Rhythm, No Murmurs GI/Abdominal Exam: Soft, Non-Tender, No Distention Extremities: Normal Inspection, Pedal Edema Skin: Warm, Dry, Intact Neurological: No New Focal Deficit, Normal Speech, Normal Tone Psy/Mental Status: Alert, Normal Affect, Normal Mood - Problem List & Annotations (1) Vaginal delivery SNOMED Code(s): 528499817 Code(s): O80 - ENCOUNTER FOR FULL-TERM UNCOMPLICATED DELIVERY Status: Acute Current Visit: Yes - Problem List Review Problem List Initiated/Reviewed/Updated: Yes - Assessment Assessment:: 24yo s/p induced for cholestasis of , GDMA2, oligohydramnios. Meconium-stained fluid. - Plan Plan:: Routine care Encourage Monitor lochia Monitor blood glucose D/C today <Tho Patton - Last Filed: 12/19/19 10:54> - Patient Data Vital Signs - Most Recent: Last Vital Signs Temp 36.6 C 12/19/19 04:33 Pulse 74 12/19/19 04:33 Resp 14 12/19/19 04:33 BP 115/56 L 12/19/19 04:33 Pulse Ox 96 12/19/19 04:33 Med Orders - Current: Current Medications Acetaminophen (Tylenol Extra Strength) 500 mg PO Q4H PRN PRN Reason: Pain Acetaminophen (Tylenol Extra Strength) 1,000 mg PO Q4H PRN PRN Reason: Pain Last Admin: 12/19/19 04:27 Dose: 1,000 mg Documented by: Benzocaine/Menthol (Dermoplast Pain Relief 20%-0.5% [place]) 78 gm TOP ASDIRECTED PRN PRN Reason: Perineal Comfort Measure Bisacodyl (Dulcolax) 10 mg RECTAL ONETIME PRN PRN Reason: Constipation Docusate Sodium (Colace) 100 mg PO BID PRN PRN Reason: Constipation Emollient Ointment (Lansinoh Hpa) 0 gm TOP ASDIRECTED PRN PRN Reason: Sore Nipples Ibuprofen (Motrin) 400 mg PO Q4H PRN PRN Reason: Pain Ibuprofen (Motrin) 800 mg PO Q6H PRN PRN Reason: Pain Methylergonovine Maleate (Methergine) 0.2 mg IM ONETIME PRN PRN Reason: Excessive Vaginal Bleeding Nadolol [Corgard] 20 (Mg)) 1 each PO DAILY [facility] Last Admin: 12/18/19 12:21 Dose: Not Given Documented by: #103/Iron Fumarate/Fa [ ] 1 each PO DAILY [facility] Last Admin: 12/18/19 12:21 Dose: Not Given Documented by: Meeta Deutsch ([facility]) 1 pad TOP ASDIRECTED PRN PRN Reason: comfort care Discontinued Medications Butorphanol Tartrate (Stadol) 1 mg IVPUSH Q1H PRN PRN Reason: Pain Last Admin: 12/17/19 08:59 Dose: 1 mg Documented by: Carboprost Tromethamine (Hemabate Ds) 250 mcg IM ASDIRECTED PRN PRN Reason: Post Hemorrhage Oxytocin/Sodium Chloride (Oxytocin 30 Unit/500 Ml-Ns) 30 unit in 500 mls @ 500 mls/hr IV TITRATE [facility] Tranexamic Acid 1,000 mg/ (Sodium Chloride) 110 mls @ 660 mls/hr IV ONETIME PRN PRN Reason: Bleeding Oxytocin/Sodium Chloride (Oxytocin 30 Unit/500 Ml-Ns) 30 unit in 500 mls @ 2 mls/hr IV TITRATE [facility]; Protocol Last Titration: 12/17/19 05:31 Dose: 10 munits/min, 10 mls/hr Documented by: Sodium Chloride (Normal Saline) 1,000 mls @ 150 mls/hr IV ASDIRECTED EDIE Last Infusion: 12/17/19 09:18 Dose: 999 mls/hr Documented by: Insulin Human Regular 100 unit (/ Sodium Chloride) 100 mls @ 1 mls/hr IV TITRATE [facility]; Protocol Dextrose/Sodium Chloride (Dextrose 5%-Normal Saline) 1,000 mls @ 100 mls/hr IV ASDIRECTED PRN PRN Reason: Blood Glucose Lidocaine HCl (Xylocaine 1%) 50 ml INJECT ONETIME PRN PRN Reason: Laceration repair Methylergonovine Maleate (Methergine) 0.2 mg IM ASDIRECTED PRN PRN Reason: Post Hemorrhage Misoprostol (Cytotec) 200 mcg PO ONETIME PRN PRN Reason: Post Hemorrhage Nalbuphine HCl (Nubain) 10 mg IVPUSH Q1H PRN PRN Reason: Pain (severe 7-10) Ondansetron HCl (Zofran) 4 mg IVPUSH Q6H PRN PRN Reason: Nausea/Vomiting Last Admin: 12/17/19 07:46 Dose: 4 mg Documented by: Sodium Chloride (Saline Flush) 10 ml FLUSH ASDIRECTED PRN PRN Reason: Keep Vein Open Sodium Chloride (Saline Flush) 2.5 ml FLUSH ASDIRECTED PRN PRN Reason: Keep Vein Open Sodium Chloride (Normal Saline) 10 ml IV ASDIRECTED PRN PRN Reason: IV Use Sterile Water (Sterile Water For Irrigation) 1,000 ml IRR ASDIRECTED PRN PRN Reason: delivery Terbutaline Sulfate (Brethine) 0.25 mg SUBCUT ASDIRECTED PRN PRN Reason: Tacysystole - My Orders Last 24 Hours: My Active Orders 12/19/19 10:51 Ready for Discharge [RC] PER UNIT ROUTINE - Plan Plan:: Patient seen, doing well, meeting milestones. Hgb stable, no s/s of anemia. Baby is doing well on antibiotics. Reviewed care instructions. Stable for discharge home.
--- NOTE | 2019-12-19 12:07 | OR ---
SURGEON: Melania Reilly M.D. DATE OF PROCEDURE: 12/17/2019 PREOPERATIVE DIAGNOSES: A 36 and 3/7 weeks' intrauterine , oligohydramnios, cholestasis of , gestational diabetes mellitus type A2. LABORATORY SAMPLER: MAUDE Campbell. ANESTHESIA: None. ESTIMATED BLOOD LOSS: Less than 200 mL. FINDINGS: Liveborn female, score of 7 and 9. Weight is pending at the time of dictation. Placenta spontaneous. Schultze intact with 3 vessels. Perineum intact. COMPLICATIONS: None known. DISPOSITION: Stable to recovery PROCEDURES: Pitocin induction of labor, artificial rupture of membranes, spontaneous vaginal delivery. BRIEF HISTORY: This is a 24-year-old female, she is G5, P2-1-1-3. She presented at 36 and 36 and 2/7 weeks' gestation. She has had a greater than 1-week history of oligohydramnios that was monitored due to status. She had received steroids a week prior. She presented to this visit with an TREVA of 2 and otherwise BPP was 6/8. She was sent to Labor and Delivery. She received Pitocin for induction of labor. She was initially 1+, 50%, and there was a question of rupture of membranes, however, she has had a negative AmniSure. However, during the labor process, she did develop fluid that appeared to be meconium-stained. She is known to be group B strep negative. She had essentially category 1 heart tones throughout labor with some episodes of minimal variability that were intermittent in nature. She progressed to 8+ cm. She was occiput posterior position. She was turned on knee-chest. She had an anterior lip and I felt that I could rotate the baby. DESCRIPTION OF PROCEDURE: With the patient in dorsal lithotomy position, the head was rotated to left occiput anterior position and the cervix was reduced. The head was then delivered over the perineum with support with subsequent delivery of the 's shoulders and body without any difficulty. The infant was bulb suctioned by nose and mouth, and after 2 minutes, the cord was doubly clamped and cut and the was handed to the mother in the presence of the nurse in attendance at delivery. The infant was a liveborn female, score of 7 and 9. Weight is pending at the time of dictation. Cord blood was collected for cord ABGs as well as routine cord blood sampling. Pitocin was initiated after delivery of the to assist with delivery of the placenta which was delivered spontaneously. Schultze intact with 3 vessels. Upon inspection of pelvis and perineum, there were no periurethral, vaginal sidewall, cervical, rectal, or perineal lacerations. EBL was less than 300 mL. There were no known complications. Mother and baby remained in LDR in good condition. DAMIAN / EUN /[id number]
== END 2019-12-19 11:30 | disposition home or self-care (01) | DRG 805 ==
LOC: MW.OBCHECK 17:59 → MW.OB 17:59 → MW.OBCHECK 18:26 → OBSVTOIN 12-17 10:07 → MW.OB 12-17 15:30
PROVIDERS: ADMIT Obstetrics & Gynecology; ATTEND Obstetrics & Gynecology
PROC: 10E0XZZ Delivery of Products of Conception, External Approach (ICD-10-PCS; principal; 2019-12-17)
PROC: 10907ZC Drainage of Amniotic Fluid, Therapeutic from Products of Conception, Via Natural or Artificial Opening (ICD-10-PCS; 2019-12-17)
PROC: 3E033VJ Introduction of Other Hormone into Peripheral Vein, Percutaneous Approach (ICD-10-PCS; 2019-12-17)
DX: O26.62 Liver and biliary tract disorders in childbirth (principal); K83.1 Obstruction of bile duct; Z37.0 Single live birth; O41.03X0 Oligohydramnios, third trimester, not applicable or unspecified; O24.429 Gestational diabetes mellitus in childbirth, unspecified control; Z11.59 Encounter for screening for other viral diseases; Z3A.36 36 weeks gestation of pregnancy; O77.0 Labor and delivery complicated by meconium in amniotic fluid
CPT/HCPCS: 36415; 59025; 59409; 80048; 82803; 82962; 84112; 85014; 85018; 85027; 86592; 86593; 86780; 86850; 86900; 86901; 88307; A9270-GY; J0595; J2405; J2590; J7030; U0002